=== PATIENT | female | born 1955 | race Two or more races ===

== ENCOUNTER 2022-04-08 12:30 | Inpatient (IN) | payer BC, OTHER ==
[~2022-04-08] VITALS: Ht 160 cm; Wt 90.7 kg
[2022-04-08] MEDS ORDERED: HYDROCHLOROTHIA25 MG PO (13:15)
[2022-04-08] MEDS ORDERED: ALLEGRA ALLERG180 MG PO (13:16)
[2022-04-08] MEDS ORDERED: PROZAC20 MG PO (13:17)
[2022-04-08] MEDS ORDERED: PANTOPRAZOLE SO40 MG PO (13:18)
[2022-04-08] MEDS ORDERED: CRESTOR10 MG PO (13:18)
[2022-04-08] MEDS ORDERED: OXYBUTYNIN CHLOR5 GM MC (13:19)
== END 2022-04-09 18:29 | disposition home or self-care (01) | DRG 392 ==
LOC: ER 12:30 → MEDJ 21:47
PROVIDERS: ADMIT Internal Medicine; ATTEND Internal Medicine
DX: K52.89 Other specified noninfective gastroenteritis and colitis (principal); Z20.822 Contact with and (suspected) exposure to COVID-19; E87.6 Hypokalemia